=== PATIENT | female | born 1965 | race Caucasian/White ===

== ENCOUNTER 2022-04-04 11:28 | Emergency (ER) | payer BC, SELFPAY ==
[2022-04-04 11:40] VITALS: BP 138/79; PULSE 71; RESP 16; TEMP 36.8; O2SAT 98; BMI 58.6
--- NOTE | 2022-04-04 12:02 | CRLHL7_ITS ---
For Patients: As a result of the Century Cures Act, medical imaging exams and procedure reports are released immediately into your electronic medical record. You may view this report before your referring provider. If you have questions, please contact your health care provider. Indication: Headache Technique: CT of the head without contrast. Coronal and sagittal reformats. Bone and soft tissue windows. Comparison: No prior studies available for comparison at this institution. Findings: Focal areas of hypoattenuation in the left caudate nucleus and left putamen, and right armin consistent with chronic lacunar infarcts. No acute intracranial hemorrhage or extra-axial collection. No evidence of acute cortical infarction. No mass effect or midline shift. Normal cerebral volume. The ventricles are normal in size, shape and contour. There is normal ponec and white matter differentiation. The orbital contents are normal. No calvarial fractures. No lytic or sclerotic osseous lesions within the calvarium or skull base. Prominence of the right frontal scalp subgaleal space potentially due to chronic hematoma. Mastoid air cells are clear. Paranasal sinuses are well aerated. Mild secretions in the left sphenoid sinus. Impression: 1. No acute intracranial abnormality. 2. Chronic lacunar infarcts in the left caudate nucleus, left putamen, and right armin. 3. Prominence of the right frontal scalp subgaleal space potentially due to chronic hematoma. Please note that all CT scans at this facility use dose modulation, iterative reconstruction, and/or weight-based dosing when appropriate to reduce radiation dose to as low as reasonably achievable. Dictated by Manuelito Medley MD @ 04/04/2022 1:24:37 PM (Electronically Signed)
--- NOTE | 2022-04-04 12:04 | ED.HA ---
HPI - Headache General Chief Complaint: Headache/Migraine Stated Complaint: Headache,bump on head Time Seen by Provider: 04/04/22 11:58 History of Present Illness HPI Narrative: This 56-year-old female comes in reporting headache and feels like she gets some bumps on her head. She does not report any injury event. She states that she feels like there is some mild swelling in her upper forehead and on the top of her head that is more prominent in the morning upon awakening. She reports headache for the past 3 or 4 days. She does have a history of headaches on occasion and states that this is not the worst headache she has ever head. She does not have any neurologic deficit currently but does report history of a stroke back in October, 5 months ago, from which she recovered. Related Data Home Medications Medication Instructions Recorded Confirmed metformin 1,000 mg tablet 1,000 mg PO BID 04/04/22 04/04/22 Previous Rx's Medication Instructions Recorded ketorolac 10 mg tablet 10 mg PO Q8H 5 days #15 tabs 04/04/22 Allergies Allergy/AdvReac Type Severity Reaction Status Date / Time Penicillins AdvReac Intermediate Rash Verified 04/04/22 11:49 Review of Systems Status of ROS: Reports: 10 or more systems reviewed and unremarkable except as noted in History and below Narrative: Constitutional: No fevers, no weight gain or loss. Eyes: No discharge. No vision changes. HENT: No congestion, no sore throat, no ear pain. Cardiovascular: No chest pain, no palpitations. Respiratory: No shortness of breath, no wheezes, no cough. Gastrointestinal: No abdominal pain, no vomiting, no diarrhea. Genitourinary: No dysuria, no hematuria. Musculoskeletal: Normal range of motion. Skin: No rashes, no pruritis. Neurological: No dizziness, weakness, sensory change, speech change. Endo/Heme/Allergies: No bruising or bleeding. No polydipsia. Pysch: no suicidality, no anxiety, no insomnia. All other systems reviewed and are negative. Exam Narrative: Exam Narrative: Constitutional: Well-developed, well-nourished, no acute distress. HEENT: Normocephalic, atraumatic. Neck: Normal range of motion. Nontender. Supple. Heart: Intact distal pulses. Lungs: No chest discomfort. No wheezes, rhonchi, or rales. Abdomen: Nontender. Back: Normal range of motion. Extremities: Normal range of motion. No injury. Skin: Intact. No rash. Warm. No erythema or pallor. Neurologic: No altered sensation. No weakness. Alert and oriented. No unilateral neurologic deficit. Speech is normal. Psychiatric: No suicidality. No anxiety or depression. No insomnia. Nursing notes and vitals signs are reviewed. Const: Vital Signs, click to edit/add: Vital Signs - 24 hr 04/04/22 11:40 Temperature 98.3 F Pulse Rate [Pulse Oximeter] 71 Respiratory Rate 16 Blood Pressure [Ri t Upper Arm] 138/79 Pulse Oximetry 98 Oxygen Delivery Me thod Room Air Course Vital Signs Vital signs: Initial Vital Signs Temperature 98.3 F 04/04/22 11:40 Temperature Source Temporal Artery Scan 04/04/22 11:40 Pulse Rate 71 04/04/22 11:40 Pulse Rhythm 04/04/22 11:40 Respiratory Rate 16 04/04/22 11:40 Blood Pressure 138/79 04/04/22 11:40 Blood Pressure Mean 98 04/04/22 11:40 Blood Pressure Position Sitting 04/04/22 11:40 Pulse Oximetry 98 04/04/22 11:40 Oxygen Delivery Method 04/04/22 11:40 Vital Signs Temperature 98.3 F 04/04/22 11:40 Pulse Rate 71 04/04/22 11:40 Respiratory Rate 16 04/04/22 11:40 Blood Pressure 138/79 04/04/22 11:40 Pulse Oximetry 98 04/04/22 11:40 Oxygen Delivery Method 04/04/22 11:40 Temperature 98.3 F 04/04/22 11:40 Pulse Rate 71 04/04/22 11:40 Respiratory Rate 16 04/04/22 11:40 Blood Pressure 138/79 04/04/22 11:40 Pulse Oximetry 98 04/04/22 11:40 Oxygen Delivery Method 04/04/22 11:40 MDM - Headache MDM Narrative Medical decision making narrative: This patient comes in with a headache and is concerned about a sense of swelling in the top of her forehead on the top of her head. She received an IM dose of Toradol 30 mg which brought good relief to her symptoms. CT scan of her head also returns with no acute findings. This was very reassuring to the patient to is okay to return home. I did provide a prescription for Toradol. Imaging Data CT scan - head: Radiologist's impression: CT of the head without contrast. Coronal and sagittal reformats. Bone and soft tissue windows. Discharge Plan Discharge Clinical Impression: Migraine Patient Disposition: Home, Self-Care Condition: Improved Instructions: Migraine Headache (ED) Additional Instructions: Take medication as needed and indicated. Follow up with MD or return if worsening. Prescriptions: New ketorolac 10 mg tablet 10 mg PO Q8H 5 Days Qty: 15 0RF No Action metformin 1,000 mg tablet 1,000 mg PO BID Follow Up/Referrals: Bret Chiang MD [Primary Care Provider] - Stand Alone Forms: [email or web address] Info Instructions
[2022-04-04] MEDS: KETOROLAC 30 MG/ML inj IM (12:10)
[2022-04-04 13:55] VITALS: BP 129/78; PULSE 68; RESP 14; TEMP 36.8; O2SAT 99
[2022-04-04 13:56] VITALS: BP 138/79; PULSE 71; RESP 16; TEMP 36.8
== END 2022-04-04 13:57 | disposition home or self-care (01) ==
PROVIDERS: Emergency Provider Emergency Medicine Emergency Medical Services; PCP Family Medicine
DX: G43.909 Migraine, unspecified, not intractable, without status migrainosus (principal)
CPT/HCPCS: 70450; 96372; 99284; J1885

== ENCOUNTER 2025-05-15 07:25 | Outpatient (CLI) | payer OTHER, SELFPAY | END 2025-05-15 07:26 | disposition home or self-care (01) | LOC: INJ CL 07:27 | PROVIDERS: Visit Provider Nurse Anesthetist, Certified Registered | DX: M17.11 Unilateral primary osteoarthritis, right knee (principal); M25.561 Pain in right knee | CPT/HCPCS: 64454; T1013 ==

== ENCOUNTER 2025-05-29 08:15 | Outpatient (CLI) | payer OTHER, SELFPAY | END 2025-05-29 08:16 | disposition home or self-care (01) | LOC: INJ CL 08:21 | PROVIDERS: Visit Provider Nurse Anesthetist, Certified Registered | DX: M17.11 Unilateral primary osteoarthritis, right knee (principal) | CPT/HCPCS: 64624; T1013; J0665; J1885; J2250; J3010 ==